=== PATIENT | female | born 1980 ===

== ENCOUNTER 2019-12-01 07:46 | Day surgery (SDC) | payer MEDICARE, MEDICAID ==
[~2019-12-01 07:46] MED LIST: ALBU2.5V14 NEB; ALPR2TAB2 PO; BUDE10.2 IH; CARB100C4 PO; HYDR-3164 PO; HYDROmorphone 2 MG/ML VIAL IV PRN; IV RINGERS,LACTATED 1000ML 1,000 ML IV SCH; LABE200T4 PO; MECL-75 PO; METF500T16 PO; MORPHINE SULFATE 2 MG/ML VIAL. IV PRN; ONDANSETRON PF 4 MG/2 ML VIAL. IV PRN; PROCHLORPERAZINE 10 MG/2 ML VIAL. IV PRN; SUMA100T4 PO; TRAM50TA PO; VENTOLIN HFA18 GM INH; fentaNYL PF VIAL 100 MCG/2 ML VIAL IV PRN
[2019-12-01] MEDS ORDERED: fentaNYL PF VIAL 100 MCG/2 ML VIAL ONE (08:20)
[2019-12-01] MEDS ORDERED: ONDANSETRON PF 4 MG/2 ML VIAL. ONE (08:21)
[2019-12-01] MEDS ORDERED: LIDOCAINE 2% PF 5 ML VIAL. ONE (08:21)
[2019-12-01] MEDS ORDERED: DEXAMETHASONE SOD PHOS 4 MG/ML VIAL ONE (08:21)
[2019-12-01] MEDS ORDERED: MIDAZOLAM HCL/PF 2 MG/2 ML VIAL. ONE (08:21)
[2019-12-01] MEDS ORDERED: KETOROLAC 30 MG/ML VIAL. ONE (08:21)
[2019-12-01] MEDS ORDERED: PROPOFOL 20 ML IV ONE (08:21)
[2019-12-01] MEDS ORDERED: ALPR0.5T6 PO (08:22)
[2019-12-01 08:27] LABS: BASO % 0 % (0-3); EOS # 0.1 x10^3/uL (0.0-0.7); EOS % 1 % (0-3); HEMATOCRIT 39.8 % (36.0-47.0); HEMOGLOBIN 13.1 g/dL (12.0-15.5); LYMPH # 2.8 x10^3/uL (1.0-4.8); LYMPH % 37 % (24-48); MEAN CORPUSCULAR HEMOGLOBIN 29 pg (25-35); MEAN CORPUSCULAR HGB CONC 33 g/dL (31-37); MEAN CORPUSCULAR VOLUME 88 fL (79-100); MONO # 0.5 x10^3/uL (0.0-1.1); MONO % 6 % (0-9); NEUT # 4.3 x10^3/uL (1.8-7.7); NEUT % 56 % (31-73); PLATELET COUNT 241 x10^3/uL (140-400); RED BLOOD COUNT 4.55 x10^6/uL (3.50-5.40); WHITE BLOOD COUNT 7.8 x10^3/uL (4.0-11.0)
[2019-12-01 08:41] LABS: PROTHROMBIN TIME PATIENT 11.9 SEC (11.7-14.0)
[2019-12-01 08:44] LABS: CALCIUM 8.4 mg/dL (8.5-10.1); CREATININE 0.8 mg/dL (0.6-1.0); POTASSIUM 3.6 mmol/L (3.5-5.1)
[2019-12-01 08:46] LABS: ALBUMIN/GLOBULIN RATIO 0.8 (1.0-1.7); TOTAL BILIRUBIN 0.2 mg/dL (0.2-1.0); TOTAL PROTEIN 6.8 g/dL (6.4-8.2)
--- NOTE | 2019-12-01 09:13 | PDOC ---
SURGICAL PROGRESS NOTE Subjective No change in dictated H&P. Vital Signs Vital Signs Date Time Temp Pulse Resp B/P (MAP) Pulse Ox O2 Delivery O2 Flow Rate FiO2 12/01/19 08:32 98 82 18 86/ 97 Room Air 98.0 Labs Laboratory Tests Test 12/01/19 08:10 White Blood Count 7.8 x10^3/uL (4.0-11.0) Red Blood Count 4.55 x10^6/uL (3.50-5.40) Hemoglobin 13.1 g/dL (12.0-15.5) Hematocrit 39.8 % (36.0-47.0) Mean Corpuscular Volume 88 fL (79-100) Mean Corpuscular Hemoglobin 29 pg (25-35) Mean Corpuscular Hemoglobin Concent 33 g/dL (31-37) Red Cell Distribution Width 15.0 % (11.5-14.5) Platelet Count 241 x10^3/uL (140-400) Neutrophils (%) (Auto) 56 % (31-73) Lymphocytes (%) (Auto) 37 % (24-48) Monocytes (%) (Auto) 6 % (0-9) Eosinophils (%) (Auto) 1 % (0-3) Basophils (%) (Auto) 0 % (0-3) Neutrophils # (Auto) 4.3 x10^3/uL (1.8-7.7) Lymphocytes # (Auto) 2.8 x10^3/uL (1.0-4.8) Monocytes # (Auto) 0.5 x10^3/uL (0.0-1.1) Eosinophils # (Auto) 0.1 x10^3/uL (0.0-0.7) Basophils # (Auto) 0.0 x10^3/uL (0.0-0.2) Prothrombin Time 11.9 SEC (11.7-14.0) Prothromb Time International Ratio 0.9 (0.8-1.1) Sodium Level 142 mmol/L (136-145) Potassium Level 3.6 mmol/L (3.5-5.1) Chloride Level 106 mmol/L (98-107) Carbon Dioxide Level 28 mmol/L (21-32) Anion Gap 8 (6-14) Blood Urea Nitrogen 11 mg/dL (7-20) Creatinine 0.8 mg/dL (0.6-1.0) Estimated GFR (Cockcroft-Gault) 79.0 BUN/Creatinine Ratio 14 (6-20) Glucose Level 135 mg/dL (70-99) Calcium Level 8.4 mg/dL (8.5-10.1) Total Bilirubin 0.2 mg/dL (0.2-1.0) Aspartate Amino Transf (AST/SGOT) 21 U/L (15-37) Alanine Aminotransferase (ALT/SGPT) 21 U/L (14-59) Alkaline Phosphatase 91 U/L (46-116) Total Protein 6.8 g/dL (6.4-8.2) Albumin 3.0 g/dL (3.4-5.0) Albumin/Globulin Ratio 0.8 (1.0-1.7) Laboratory Tests Test 12/01/19 08:10 White Blood Count 7.8 x10^3/uL (4.0-11.0) Red Blood Count 4.55 x10^6/uL (3.50-5.40) Hemoglobin 13.1 g/dL (12.0-15.5) Hematocrit 39.8 % (36.0-47.0) Mean Corpuscular Volume 88 fL (79-100) Mean Corpuscular Hemoglobin 29 pg (25-35) Mean Corpuscular Hemoglobin Concent 33 g/dL (31-37) Red Cell Distribution Width 15.0 % (11.5-14.5) Platelet Count 241 x10^3/uL (140-400) Neutrophils (%) (Auto) 56 % (31-73) Lymphocytes (%) (Auto) 37 % (24-48) Monocytes (%) (Auto) 6 % (0-9) Eosinophils (%) (Auto) 1 % (0-3) Basophils (%) (Auto) 0 % (0-3) Neutrophils # (Auto) 4.3 x10^3/uL (1.8-7.7) Lymphocytes # (Auto) 2.8 x10^3/uL (1.0-4.8) Monocytes # (Auto) 0.5 x10^3/uL (0.0-1.1) Eosinophils # (Auto) 0.1 x10^3/uL (0.0-0.7) Basophils # (Auto) 0.0 x10^3/uL (0.0-0.2) Prothrombin Time 11.9 SEC (11.7-14.0) Prothromb Time International Ratio 0.9 (0.8-1.1) Sodium Level 142 mmol/L (136-145) Potassium Level 3.6 mmol/L (3.5-5.1) Chloride Level 106 mmol/L (98-107) Carbon Dioxide Level 28 mmol/L (21-32) Anion Gap 8 (6-14) Blood Urea Nitrogen 11 mg/dL (7-20) Creatinine 0.8 mg/dL (0.6-1.0) Estimated GFR (Cockcroft-Gault) 79.0 BUN/Creatinine Ratio 14 (6-20) Glucose Level 135 mg/dL (70-99) Calcium Level 8.4 mg/dL (8.5-10.1) Total Bilirubin 0.2 mg/dL (0.2-1.0) Aspartate Amino Transf (AST/SGOT) 21 U/L (15-37) Alanine Aminotransferase (ALT/SGPT) 21 U/L (14-59) Alkaline Phosphatase 91 U/L (46-116) Total Protein 6.8 g/dL (6.4-8.2) Albumin 3.0 g/dL (3.4-5.0) Albumin/Globulin Ratio 0.8 (1.0-1.7) WILLIE KEE MD Dec 01, 2019 09:12
--- NOTE | 2019-12-01 09:17 | PDOC ---
SURGICAL PROGRESS NOTE Subjective Surgeon.....................................Kee Pre-Op Diagnosis.......................R Breast mass Post-Op Diagnosis.....................R Breast mass Anesthesia................................General Procedure..................................R breast mass excision Drains.......................................None Fluids........................................See Anesthesia Note Blood Loss.................................10cc Condition....................................Satisfactory Vital Signs Vital Signs Date Time Temp Pulse Resp B/P (MAP) Pulse Ox O2 Delivery O2 Flow Rate FiO2 12/01/19 08:32 98 82 18 86/ 97 Room Air 98.0 Labs Laboratory Tests Test 12/01/19 08:10 White Blood Count 7.8 x10^3/uL (4.0-11.0) Red Blood Count 4.55 x10^6/uL (3.50-5.40) Hemoglobin 13.1 g/dL (12.0-15.5) Hematocrit 39.8 % (36.0-47.0) Mean Corpuscular Volume 88 fL (79-100) Mean Corpuscular Hemoglobin 29 pg (25-35) Mean Corpuscular Hemoglobin Concent 33 g/dL (31-37) Red Cell Distribution Width 15.0 % (11.5-14.5) Platelet Count 241 x10^3/uL (140-400) Neutrophils (%) (Auto) 56 % (31-73) Lymphocytes (%) (Auto) 37 % (24-48) Monocytes (%) (Auto) 6 % (0-9) Eosinophils (%) (Auto) 1 % (0-3) Basophils (%) (Auto) 0 % (0-3) Neutrophils # (Auto) 4.3 x10^3/uL (1.8-7.7) Lymphocytes # (Auto) 2.8 x10^3/uL (1.0-4.8) Monocytes # (Auto) 0.5 x10^3/uL (0.0-1.1) Eosinophils # (Auto) 0.1 x10^3/uL (0.0-0.7) Basophils # (Auto) 0.0 x10^3/uL (0.0-0.2) Prothrombin Time 11.9 SEC (11.7-14.0) Prothromb Time International Ratio 0.9 (0.8-1.1) Sodium Level 142 mmol/L (136-145) Potassium Level 3.6 mmol/L (3.5-5.1) Chloride Level 106 mmol/L (98-107) Carbon Dioxide Level 28 mmol/L (21-32) Anion Gap 8 (6-14) Blood Urea Nitrogen 11 mg/dL (7-20) Creatinine 0.8 mg/dL (0.6-1.0) Estimated GFR (Cockcroft-Gault) 79.0 BUN/Creatinine Ratio 14 (6-20) Glucose Level 135 mg/dL (70-99) Calcium Level 8.4 mg/dL (8.5-10.1) Total Bilirubin 0.2 mg/dL (0.2-1.0) Aspartate Amino Transf (AST/SGOT) 21 U/L (15-37) Alanine Aminotransferase (ALT/SGPT) 21 U/L (14-59) Alkaline Phosphatase 91 U/L (46-116) Total Protein 6.8 g/dL (6.4-8.2) Albumin 3.0 g/dL (3.4-5.0) Albumin/Globulin Ratio 0.8 (1.0-1.7) Laboratory Tests Test 2/11/20 08:10 White Blood Count 7.8 x10^3/uL (4.0-11.0) Red Blood Count 4.55 x10^6/uL (3.50-5.40) Hemoglobin 13.1 g/dL (12.0-15.5) Hematocrit 39.8 % (36.0-47.0) Mean Corpuscular Volume 88 fL (79-100) Mean Corpuscular Hemoglobin 29 pg (25-35) Mean Corpuscular Hemoglobin Concent 33 g/dL (31-37) Red Cell Distribution Width 15.0 % (11.5-14.5) Platelet Count 241 x10^3/uL (140-400) Neutrophils (%) (Auto) 56 % (31-73) Lymphocytes (%) (Auto) 37 % (24-48) Monocytes (%) (Auto) 6 % (0-9) Eosinophils (%) (Auto) 1 % (0-3) Basophils (%) (Auto) 0 % (0-3) Neutrophils # (Auto) 4.3 x10^3/uL (1.8-7.7) Lymphocytes # (Auto) 2.8 x10^3/uL (1.0-4.8) Monocytes # (Auto) 0.5 x10^3/uL (0.0-1.1) Eosinophils # (Auto) 0.1 x10^3/uL (0.0-0.7) Basophils # (Auto) 0.0 x10^3/uL (0.0-0.2) Prothrombin Time 11.9 SEC (11.7-14.0) Prothromb Time International Ratio 0.9 (0.8-1.1) Sodium Level 142 mmol/L (136-145) Potassium Level 3.6 mmol/L (3.5-5.1) Chloride Level 106 mmol/L (98-107) Carbon Dioxide Level 28 mmol/L (21-32) Anion Gap 8 (6-14) Blood Urea Nitrogen 11 mg/dL (7-20) Creatinine 0.8 mg/dL (0.6-1.0) Estimated GFR (Cockcroft-Gault) 79.0 BUN/Creatinine Ratio 14 (6-20) Glucose Level 135 mg/dL (70-99) Calcium Level 8.4 mg/dL (8.5-10.1) Total Bilirubin 0.2 mg/dL (0.2-1.0) Aspartate Amino Transf (AST/SGOT) 21 U/L (15-37) Alanine Aminotransferase (ALT/SGPT) 21 U/L (14-59) Alkaline Phosphatase 91 U/L (46-116) Total Protein 6.8 g/dL (6.4-8.2) Albumin 3.0 g/dL (3.4-5.0) Albumin/Globulin Ratio 0.8 (1.0-1.7) WILLIE KEE MD Dec 01, 2019 09:17
[2019-12-01] MEDS ORDERED: BUPIVACAINE-EPI 0.5%-1:200000 MPF 30 ML VIAL. ONE (09:27)
--- NOTE | 2019-12-01 11:06 | DISCH ---
DISCHARGE INSTRUCTIONS Condition on Discharge Condition on Discharge: Stable Activity After Discharge Activity Instructions for Disc: No restrictions Diet after Discharge Additional Diet Restrictions: diet as pre op Wound Incision Care Wound/Incision Care: Other, see below Other wound/incision instructi: keep wound dry for 72 hours then change dressing prn Contacting the DRMarlon after DC Call your doctor for: Follow-Up Follow up with: call and make appointmen tto see me i 14 days. WILLIE KEE MD Dec 01, 2019 11:06
[2019-12-01 12:24] VITALS: BP 134/65
--- NOTE | 2019-12-01 12:41 | HP ---
ADMIT DATE: HISTORY OF PRESENT ILLNESS: The patient comes to the hospital with a chief complaint of a mass of the right breast. The history is that she has had two breast biopsies for benign disease in the past, no evidence of breast cancer. Mammogram has been ordered as she has not had one in the year, but does come in because she palpates this mass and also had her relatives palpate it. There has been no nipple discharge or other difficulties relative to breast. PAST MEDICAL HISTORY: Shows normal childhood diseases. She does not have hypertension, diabetes or heart disease. However, she does have a long history of possible gallbladder sludge, but with upper endoscopy, lower endoscopy and I reviewed the sonogram, which did not show sludge and also a PIPIDA scan was normal. She does have a seizure disorder, which she has had for years and has been treated with a NGT control and has not had seizure since then. That is in the left chest wall. She also has a history of lower back pain for which she has stimulators and treatment, and apparently has an implant in for that. She does have a seizure disorder for which she has been treated as stated before. ALLERGIES: CONSIST OF LATEX ALLERGY AND SHE STATES ALSO TO HAVE A RASH WITH MORPHINE. FAMILY HISTORY: Noncontributory. SOCIAL HISTORY: Shows that she does not drink, use illicit drugs or smoke. REVIEW OF SYSTEMS: At this point is negative except for some dyspepsia, which she experiences after she eats and she states that the seizure disorder has been controlled with the appliance that had been placed. She does have a history of having had a hysterectomy also. PHYSICAL EXAMINATION: GENERAL: Shows an alert female in no acute distress. HEAD, EYES, NOSE AND THROAT: Grossly normal. BREASTS: Examination of the breasts were negative except for mass, which was about a 1.5 cm in size in the upper outer quadrant of the right breast near previous incisional scar. It appears to be movable and appears only to be a few centimeters below the surface. It is well circumscribed. There is no nipple discharge, redness or other abnormalities. No retraction and the axillary areas are negative. CHEST: Clear. HEART: Unremarkable. ABDOMEN: Soft with no evidence of hepatomegaly, organomegaly or other diseases. EXTREMITIES: Grossly normal. IMPRESSION: 1. Possible acalculous cholecystitis. 2. Seizure disorders. 3. Significant back pain, etiology not determined. 4. Right breast mass. It should be noted that she discussed the treatment and she wishes to have the mass removed and not biopsied and we will proceed per her request. We do need to make a tissue diagnosis of this. WILLIE KEE MD DR: MEHNAZ/anup JOB#: [id number] / [id number]
[2019-12-01] MEDS ORDERED: HYDROcodone/APAP 5/325MG 1 TAB TABLET PO ONE (12:45)
--- NOTE | 2019-12-02 01:04 | OP ---
DATE OF SURGERY: 12/01/2019 SURGEON: Elder Kee MD PREOPERATIVE DIAGNOSIS: Mass of the right breast. POSTOPERATIVE DIAGNOSIS: Mass of the right breast. ANESTHESIA: General. PROCEDURE: Excision mass, right breast. TECHNIQUE: Under general anesthesia, the patient was properly prepped and draped in routine fashion. The right breast had already been prepped and draped in a routine fashion and marked. We then made an incision following the skin lines in the upper outer quadrant of the right breast about an inch and a half in size and length and carried it down through the skin with a 15 blade. We used cautery to get down to the mass. It was clearly palpable. It was solid. It felt pretty firm and did not appear to invade the surrounding tissues. We used Metzenbaum scissors to slowly divide it from the surrounding structures and cautery on some occasions as there was minimal bleeding. 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 We then inspected the wound. There was no bleeding. The deeper tissues were approximated with interrupted 4-0 Vicryl and the skin was closed using a subcuticular 5-0 Vicryl. Sterile dressing was applied as the procedure was terminated. The blood loss was probably less than 5 mL. DRAINS: No drains were used. Fluids given can be obtained from the anesthesia sheet. CONDITION OF THE PATIENT: Satisfactory as she has returned to the recovery room. ELDER KEE MD DR: MEHNAZ/nts JOB#: [id number] / [id number]
--- NOTE | 2019-12-02 20:06 | PATHOLOGY ---
[facility] Accession Number: [id number] . 01 Material submitted: . breast - RIGHT BREAST MASS. Modifiers: right . 01 Clinical history: . Right breast mass . 02 Diagnosis: Fibroadipose tissue, right breast mass excision: - Organizing fat necrosis showing fibrosis, granulomatous and chronic inflammation, and dystrophic calcification. (JPM:coffee sampler; 12/02/2019) MBR 12/02/2019 1553 Local . 02 Comment: There is no evidence of malignancy. (JPM:james; 12/02/2019) . 02 Electronically signed: . Chet Alvarez MD, Pathologist NPI- [id number] . 01 Gross description: . The specimen is received in formalin, labeled "Salty Trinh, right breast mass" and consists of a 3 g fluctuant cystic pink duran to yellow segment of tissue measuring 2.4 x 1.6 x 1.6 cm. It is inked black and sectioned revealing cystic cut surfaces containing soft yellow duran material. The specimen is entirely submitted in A1-A3. (SDY; 12/01/2019) SYU/SYU 12/02/2019 1551 Local . 02 Pathologist provided ICD-10: N60.31, N61.0, N64.1 . 02 CPT . 405559 Specimen Comment: A courtesy copy of this report has been sent to [phone] Specimen Comment: Report sent to DR OKEEFE Performed at: 01 [facility] [address] [id number] MD Isael Joaquin MD Phone: [phone] Performed at: 02 [facility] [address] [place], [place] [id number] MD Chet Alvarez MD Phone: [phone]
== END 2019-12-01 13:04 | disposition home or self-care (01) ==
LOC: SURG 07:46
PROVIDERS: ATTEND Specialist
DX: N63.10 Unspecified lump in the right breast, unspecified quadrant (principal); N60.31 Fibrosclerosis of right breast; N61.0 Mastitis without abscess; I10 Essential (primary) hypertension; J45.909 Unspecified asthma, uncomplicated; G47.30 Sleep apnea, unspecified; M79.7 Fibromyalgia; D64.9 Anemia, unspecified; F19.90 Other psychoactive substance use, unspecified, uncomplicated; F41.9 Anxiety disorder, unspecified; E66.9 Obesity, unspecified; Z68.41 Body mass index [BMI] 40.0-44.9, adult; Z79.899 Other long term (current) drug therapy; Z79.01 Long term (current) use of anticoagulants; Z90.710 Acquired absence of both cervix and uterus; Z87.39 Personal history of other diseases of the musculoskeletal system and connective tissue; Z90.721 Acquired absence of ovaries, unilateral
CPT/HCPCS: 19120; 36415; 80053; 85025; 85610; A7015; J1100; J1885; J2001; J2250; J2405; J2704; J3010; J3490